=== PATIENT | male | born 1955 | race Hispanic/Latino ===

== ENCOUNTER → 2018-11-28 | Outpatient (REF) ==
[~2018-11-28] MED LIST: (None)3.5 GM OP; FLEXERIL PO; GENTAMICIN15 ML/BTL OP; GLIPIZIDE10 MG PO; KEFLEX500 MG PO; LISINOPRIL10 MG PO; LORTAB 10 PO; LORTAB 1010 MG PO; METFORMIN500 MG PO
== END | disposition home or self-care (01) | DRG 639 ==
LOC: LAB 07:49
PROVIDERS: ATTEND Nurse Practitioner Family
DX: E11.65 Type 2 diabetes mellitus with hyperglycemia (principal); E78.5 Hyperlipidemia, unspecified; I10 Essential (primary) hypertension

== ENCOUNTER 2021-08-08 07:04 | Day surgery (SDC) | payer SELFPAY ==
[~2021-08-08] VITALS: Ht 172.7 cm; Wt 80.7 kg
[~2021-08-08 07:04] MED LIST changes: +CHOLESTEROL MED PO
[2021-08-08 09:25] VITALS: BP 152/81
== END 2021-08-08 09:51 | disposition home or self-care (01) | DRG 951 ==
LOC: ENDO 07:04
PROVIDERS: ATTEND Surgery
PROC: 0DJD8ZZ Inspection of Lower Intestinal Tract, Via Natural or Artificial Opening Endoscopic (ICD-10-PCS; principal; 2021-08-08)
DX: Z12.11 Encounter for screening for malignant neoplasm of colon (principal); E11.9 Type 2 diabetes mellitus without complications; Z79.84 Long term (current) use of oral hypoglycemic drugs

== ENCOUNTER 2023-09-30 21:20 | Emergency (ER) | payer MEDICARE ==
[~2023-09-30] VITALS: Ht 170.2 cm; Wt 75.0 kg
[2023-09-30 22:57] LABS: BASO% 0.2 % (0-3); EOS% 1.6 % (0-8); HEMATOCRIT 43.5 % (39.0-50.0); HEMOGLOBIN 14.7 g/dl (14.0-18.0); IMMATURE GRANULOCYTES 0.2 % (0.0-5.0); LYMPH% 17.9 % (15-41); MEAN CELL VOLUME 94.4 fL CALC (80.0-100.0); MEAN CORPUSCULAR HGB 31.9 pG CALC (26.0-32.0); MEAN CORPUSCULAR HGB CONC 33.8 g/dL CAL (32.0-36.0); MONO% 9.6 % (2-13); NEUT# 3.14 thou/uL (1.82-7.42); NEUT% 70.5 % (42-76); RED BLOOD COUNT 4.61 mill/uL (4.70-6.10); RED CELL DISTRI WIDTH 12.4 % (11.5-15.5)
[2023-09-30] MEDS ORDERED: ROBITUSSIN AC10 ML PO ×2 (23:21→23:22)
[2023-09-30 23:38] VITALS: BP 133/81
== END 2023-09-30 23:38 | disposition home or self-care (01) ==
LOC: ED 21:20
PROVIDERS: Family Medicine
DX: J10.1 Influenza due to other identified influenza virus with other respiratory manifestations (principal); E11.9 Type 2 diabetes mellitus without complications; Z79.84 Long term (current) use of oral hypoglycemic drugs; Z20.822 Contact with and (suspected) exposure to COVID-19